=== PATIENT | female | born 1960 | race African-American/Black ===

== ENCOUNTER 2021-04-19 12:35 | Emergency (ER) | payer OTHER ==
[~2021-04-19] VITALS: Ht 165.1 cm; Wt 63.5 kg
[~2021-04-19 12:35] MED LIST: AMLODIPINE BESYL5 MG; BACTRIM DS TAB1 EACH PO; BENTYL20 MG PO; CEFTIN500 MG PO; CHANTIX1 MG PO; COLACE100 MG PO; MACROBID 100 M100 M1 PO; MUCINEX TA600 MG/TA2 PO; NICOTINE TRANSD14 M1 TD; NOHOMEMEDICATIONS; NORCO 5-325 TA1 EACH PO; PAIN & FEVER325 MG PO; PENICILLIN VK500 M1 PO; PREDNISONE 10 M10 MG PO; PREMPRO 0.3 MG1 EACH; PROAIR HFA8.5 GM INH; SIMVASTATIN5 MG; TENORMIN PO; ULTRAM 50MG TAB50 MG PO; ZOFRAN 4 MG ORAL4 M1 DIS; [UNRECOGNIZED DRUG - REMARK]
[2021-04-19] MEDS ORDERED: PROAIR HFA8.5 GM INH (13:04)
[2021-04-19] MEDS ORDERED: APAP W/CODEINE1 TA2 PO (13:04)
[2021-04-19] MEDS ORDERED: PREDNISONE 20 M20 MG PO (13:04)
[2021-04-19] MEDS ORDERED: DOXYCYCLINE 10100 MG PO (13:04)
[2021-04-19 13:48] VITALS: BP 124/54
== END 2021-04-19 13:49 | disposition home or self-care (01) ==
LOC: M.ERS 12:35
DX: J18.8 Other pneumonia, unspecified organism (principal); Z20.822 Contact with and (suspected) exposure to COVID-19

== ENCOUNTER 2022-01-01 21:24 | Emergency (ER) | payer OTHER ==
[~2022-01-01] VITALS: Ht 165.1 cm; Wt 54.4 kg
[~2022-01-01 21:24] MED LIST changes: +APAP W/CODEINE1 TA2 PO; +DOXYCYCLINE 10100 MG PO; +PREDNISONE 20 M20 MG PO
[2022-01-01 22:04] LABS: ABSOLUTE BASOPHILS 0.1 thou/uL (0.0-0.2); ABSOLUTE EOSINOPHILS 0.5 thou/uL (0.0-0.7); ABSOLUTE LYMPHOCYTES 2.2 thou/uL (0.8-5.3); ABSOLUTE MONOCYTES 0.8 thou/uL (0.0-1.2); ABSOLUTE NEUTROPHILS 5.3 thou/uL (1.6-8.1); BASOPHILS 1.4 %; EOSINOPHILS 5.5 %; HEMATOCRIT 38.5 % (37.0-47.0); HEMOGLOBIN 12.2 gm/dL (12.0-15.0); LYMPHOCYTES 24.4 %; MCH 23.1 pg (26.0-34.0); MCHC 31.6 g/dL (28.0-37.0); MCV 72.9 fL (80.0-100.0); MONOCYTES 8.7 %; MPV 7.5 fl. (7.2-11.1); NUCLEATED RBCS 0 /100WBC; PLATELET COUNT* 254 thou/uL (150-400); RBC 5.28 mil/uL (4.20-5.00); WBC 8.9 thou/uL (4.0-11.0)
[2022-01-01 22:09] LABS: CALCIUM 8.6 mg/dL (8.5-10.1); CREATININE 0.7 mg/dL (0.6-1.3); POTASSIUM 4.4 mmol/L (3.5-5.1)
[2022-01-01 22:20] LABS: INFLUENZA A ANTIGEN Negative (Negative); INFLUENZA B ANTIGEN Negative (Negative)
[2022-01-01 22:20] LABS: ALBUMIN 3.6 g/dL (3.4-5.0); MAGNESIUM 1.9 mg/dL (1.8-2.4); TOTAL BILIRUBIN 0.4 mg/dL (<0.1-1.0); TOTAL PROTEIN 7.1 g/dL (6.4-8.2)
[2022-01-01] MEDS ORDERED: TESSALON PERLE100 MG PO (23:06)
[2022-01-01 23:15] VITALS: BP 129/84
--- NOTE | 2022-01-03 11:12 | EKG ---
[place] [address] ELECTROCARDIOGRAM REPORT Name: JOAQUÍN HURTADO Room: [facility]#: [id number] Admission: 01/01/22 Attend Phys: Discharge: 01/01/22 Date of : 56 Date of Service: 01/01/222155 Report #: [id number] THIS REPORT FOR: //name// 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 : 1960 Requested By: Naman Arevalo Order Number: [id number] MD: Jay Dorman Measurements Intervals [place] Rate: 90 P: 54 MT: 168 QRS: 1 QRSD: 82 T: 34 QT: 366 QTc: 448 Interpretive Statements Sinus rhythm Minor nonspecific ST-T alteration Baseline wander in lead(s) V6 Compared to ECG 05/17/2013 16:28:[address]-T changes have occurred Electronically Signed On 01-03-2022 11:12:37 [employer] by Jay Dorman [email or web address] <ELECTRONICALLY SIGNED> By: Jay Dorman MD, [facility] 01/03/22 1112 [id number] Jay Dorman MD, [facility] /EPI
== END 2022-01-01 23:16 | disposition home or self-care (01) ==
LOC: M.ERS 21:24
PROVIDERS: Physician Assistant Medical
DX: J20.9 Acute bronchitis, unspecified (principal); Z20.822 Contact with and (suspected) exposure to COVID-19; F17.210 Nicotine dependence, cigarettes, uncomplicated